=== PATIENT | female | born 1995 | race Caucasian/White ===

== ENCOUNTER → 2017-01-20 | Outpatient (REF) | payer OTHER ==
[2017-01-20 12:31] LABS: FOLLICLE STIMULATING HORMONE 8.9 mIU/mL; LUTEINIZING HORMONE 8.6 mIU/mL; PROLACTIN 7.6 NG/ML
[2017-01-20 12:40] LABS: FREE T4 0.96 NG/DL (0.76-1.46)
== END ==
LOC: M LABNEURO 11:07
PROVIDERS: ATTEND Psychiatry & Neurology Neurology
DX: D44.3 Neoplasm of uncertain behavior of pituitary gland (principal)